=== PATIENT | male | born 1965 | race Caucasian/White ===

== ENCOUNTER 2019-08-20 16:05 | Observation (INO) | payer OTHER, SELFPAY ==
[2019-08-20 16:06] VITALS: BP 160/97; PULSE 107; RESP 16; TEMP 36.6; O2SAT 97; BMI 40.4
--- NOTE | 2019-08-20 16:21 | RAD_ITS ---
STUDY: X-RAY - RIGHT HAND REASON FOR EXAM: Male, 54 years old. SWELLING AND REDNESS TO 2ND DIGIT S/P PULLING OUT INGROWN NAIL, REDNESS TRAVELING PROXIMALLY TECHNIQUE: 3 view(s) of the hand. COMPARISON: None. FINDINGS: Normal radiocarpal articulation. Normal distal radioulnar joint. Normal visualized carpal bones. Normal carpal articulations Normal carpometacarpal articulation of the thumb. Normal second through fifth carpometacarpal joints. Normal metacarpi. Normal metacarpophalangeal joint of the thumb. Normal interphalangeal joint of the thumb. Normal proximal and distal phalanges of the thumb. There is degenerative arthrosis of the metacarpophalangeal (MCP) joints. Normal proximal and distal interphalangeal joints of the second through fifth fingers. Normal phalanges of the second through fifth fingers. There is localized soft tissue swelling of the distal second digit. RAD/Hand Min 3 Views IMPRESSION: Distal second digit soft tissue swelling without demonstrated fracture or erosive bony process. Electronically Signed: Jt Tyler MD (Brooks) at 17:11 EST , Service support ,
[2019-08-20 17:16] LABS: Absolute Lymphocyte Count 1.14 X10^3/uL (0.83-4.51); Absolute Neutrophil Count 5.4 X10^3/uL (2.0-7.7); Basophil# 0.06 X10^3/uL; Basophil% 0.8 % (0-1); Eosinophil# 0.15 X10^3/uL; Hematocrit 50.3 % (40-54); Hemoglobin 16.5 g/dL (13.0-16.5); Lymphocyte # 1.14 X10^3/ul (4.0); Lymphocyte % 15.3 % (19-41); Mean Corp Hgb Conc 32.8 g/dL (32-36); Mean Corpuscular Hgb 30.3 pg (27.0-32.0); Mean Corpuscular Volume 92.5 fL (80-94); Mean Platelet Vol. 9.2 fl (6.2-12.0); Monocyte# 0.66 X10^3/uL; Monocyte% 8.8 % (0-10); NRBC Flagged by Analyzer 0 % (0-5); Neutrophil # 5.39 X10^3/uL (2.7-7.7); Neutrophil % 72.3 % (47-70); Platelet Count 241 K/mm3 (150-450); RBC Distribution Width CV 12.4 % (11.6-14.6); RBC Distribution Width SD 42.2 fl (35.1-43.9); Red Blood Count 5.44 M/mm3 (4.6-6.2); White Blood Count 7.5 K/mm3 (4.4-11.0)
--- NOTE | 2019-08-20 17:42 | ED.DCSUM_ITS ---
- ER Visit Summary Date of Service: 08/20/19 Chief Complaint: Right arm infection History of Present Illness: The patient is a 54 M with a right arm infection. This started at his right index finger nailbed yesterday. He tried to drain it, but it did not resolve. He has streaking all up his right arm to his axilla. No fevers. History of diabetes with an A1c of 12. No blood thinners. Physical Examination: Afebrile and vital signs unremarkable. Heart rate 107. Alert and oriented. No acute distress. Patient has a right index finger paronychia with fluctuance. There is lymphangitic streaking up his right arm to his axilla. Otherwise exam is unremarkable. Test Results: Labs are pending. Cultures pending. X-ray shows second digit soft tissue swelling with no fracture or bony erosion. Emergency Department Course and Treatment: Paronychia was incised by me. Pus was expressed. He was soaked in soapy water. Patient will need IV antibiotics. He was started on clindamycin, again blood work and cultures are pending. Will contact the hospitalist for further care. Treatment Plan: As above Disposition: Admission Impression: 1. Right index finger paronychia 2. Lymphangitic streaking/cellulitis right arm This note was generated with myhomemove dictation software. It may contain incorrect words, spelling, and punctuation that were not noted in review of the chart prior to signing ED Disposition - Plan for ED Patient: Referrals: Guevara Gregg MD [Primary Care Provider] -
[2019-08-20 17:54] LABS: ALB/GLOB Ratio 1.3 RATIO (0.9-2.4); AST(SGOT) 14 U/L (15-37); Alanine Aminotransfer ALT/SGPT 51 U/L (16-61); Albumin, Serum 4.4 g/dL (3.2-5.0); Alkaline Phosphatase 62 U/L (45-117); Anion Gap 7 (5-15); BUN 17 mg/dL (7-18); BUN/Creat Ratio 20.6 RATIO (10-20); Calcium,Total 9.9 mg/dL (8.5-10.1); Chloride 108 mmol/L (98-107); Creatinine, Serum 0.82 mg/dL (0.70-1.30); EST Glomerular Filtration Rate 103 mL/min (>60); Est Glom Filt Rate - Afr Amer 125 mL/min (>60); Estimated Creatinine Clearance 109.68 ml/min; Globulin 3.5 g/dL (2.2-4.2); Glucose 128 mg/dL (74-106); Potassium 4.4 mmol/L (3.5-5.1); Protein, Total 7.9 g/dL (6.4-8.2); Sodium Level 138 mmol/L (136-145)
[2019-08-20 18:06] VITALS: BP 169/85; PULSE 96; RESP 16; TEMP 37; O2SAT 96
[2019-08-20 18:07] VITALS: TEMP 37
--- NOTE | 2019-08-20 18:57 | PCM.HP.STD ---
History of Present Illness Date of Admission: 08/20/19 Chief Complaint: Infected fingernail The patient is a 54 year old M with a history of diabetes presents with an infected first fingernail on the right hand. He says that he first noticed it a couple of days ago and he thought that it was can get better on its own however today he woke up he noticed redness streaking all the way up his arm into his axilla. He denies any fevers or chills. In the ER he has no white count or fever and vital signs are very stable. He is nervous about going home simply because of his diabetes and is afraid to the infection getting worse. Past Medical History Allergies No Known Allergies Allergy (Verified 08/20/19 16:06) Surgical History: no surgical history Smoking Status: Never smoker Alcohol: None Drugs: None - *Family History Maternal History Items: Cancer Paternal History Items: Unknown Review of Systems Constitutional: Denies: Chills, Fever, Weight Change HEENT: Denies: Head Aches, Sinus Congestion, Sinus Drainage Cardiovascular: Denies: Chest Pain, Palpitations Respiratory: Denies: Cough, Shortness of breath at rest, Sputum production Gastrointestinal: Denies: Abdominal Pain, Nausea, Vomiting Genitourinary: Denies: Dysuria Musculoskeletal: Denies: Joint Pain, Joint Tenderness Skin: Reports: Wounds - Infection in his first fingernail on his right hand. Denies: Rash Neurological: Denies: Numbness, Tingling, Focal weakness Psychiatric: Denies: Anxiety, Depression Hematologic/ Lymphatic: Denies: Easy Bruising, Easy Bleeding VTE Information - Inpt Only VTE Present on Admission: No - Physical Exam Vitals/I&O's: Vital Signs Temp Pulse Resp BP Pulse Ox 98.6 F 96 16 169/85 H 96 08/20/19 18:07 08/20/19 18:06 08/20/19 18:06 08/20/19 18:06 08/20/19 18:06 Oxygen Delivery Method Room Air Weight: 290 lb Body Mass Index (BMI) 40.4 Intake and Output for Last 24 Hours 08/18/19 08/19/19 08/20/19 23:59 23:59 23:59 Intake Total 54 / 54 Balance 54 / 54 General: Alert, Oriented x3, Cooperative, No apparent distress HEENT: Atraumatic, PERRLA, EOMI, Normocephalic Oral: Moist Mucosa Neck: Supple, No JVD Lungs: Clear to auscultation, Normal air movement, No rhonchi, No wheeze, No rales, Diminished Cardiovascular: Regular rate, Regular Rhythm, Normal S1, Normal S2, No murmurs Abdomen: Soft, Non Tender, Non-Distended, No Hepato-splenomegaly Extremities: No edema, Capillary Refill Less than 3 Seconds Skin: Ulcer/ Wound - Right paronychia on the first finger nail, status post I&D in the ER there is lymphangitic streaking up into his axilla Neurological: Neuro grossly intact, Sensory exam intact to light touch and pain - 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 from diabetes Psych/Mental Status: Normal Affect, Appropriate Laboratory Results 08/20/19 17:06: WBC 7.5, RBC 5.44, Hgb 16.5, Hct 50.3, MCV 92.5, MCH 30.3, MCHC 32.8, RDW Std Deviation 42.2, RDW Coeff of Johnathan 12.4, Plt Count 241, MPV 9.2, Immature Gran % (Auto) 0.800, Neut % (Auto) 72.3 H, Lymph % (Auto) 15.3 L, [place] % (Auto) 8.8, Eos % (Auto) 2.0, Baso % (Auto) 0.8, Absolute Neuts (auto) 5.4, Absolute Lymphs (auto) 1.14, Nucleated RBC % 0 08/20/19 17:20: Sodium 138, Potassium 4.4, Chloride 108 H, Carbon Dioxide 23.0, Anion Gap 7, BUN 17, Creatinine 0.82, Estim Creat Clear Calc 109.68, Est GFR (MDRD) Af Amer 125, Est GFR (MDRD) Non-Af 103, BUN/Creatinine Ratio 20.6 H, Glucose 128 H, Calcium 9.9, Total Bilirubin 0.30, AST 14 L, ALT 51, Alkaline Phosphatase 62, Total Protein 7.9, Albumin 4.4, Globulin 3.5, Albumin/Globulin Ratio 1.3 Assessment/Plan 1. Paronychia status post I&D without sepsis -We will start him on p.o. Keflex and monitor for response he did receive a dose of clindamycin in the ER -Local wound care -There is a lymphangitic streak up into the axilla there is no tenderness 2. DM 2/morbid obesity -We will hold his home oral medications -Obtain an A1c for our records -Continue with long-acting insulin 5 units at night with sliding scale insulin. Accu-Cheks AC at bedtime -BMI of 40.4, he has lost well over 100 pounds from a couple years ago. Discussed lifestyle modifications as well as diet and exercise. DVT: Low risk Code Visit OBSV E&M: 52561 Initial observation care L2
[2019-08-20 19:33] VITALS: BMI 41.3
[2019-08-20 19:41] VITALS: BP 139/81; PULSE 91; RESP 16; TEMP 36.1; O2SAT 97
[2019-08-20 19:42] VITALS: BMI 41.3
[2019-08-20] MEDS: Losartan Potassium 50 MG Tablet PO (21:42)
[2019-08-20 22:00] LABS: Bedside Glucose 130 mg/dL (70-110)
[2019-08-20] MEDS: Cephalexin 500 MG Capsule PO (23:47)
[2019-08-20 23:51] VITALS: BP 143/79; PULSE 94; RESP 18; TEMP 36.9; O2SAT 98
[2019-08-21 05:45] VITALS: BP 133/68; PULSE 88; RESP 18; TEMP 36.9; O2SAT 93
[2019-08-21] MEDS: Cephalexin 500 MG Capsule PO (05:47)
[2019-08-21 06:04] LABS: Absolute Lymphocyte Count 1.06 X10^3/uL (0.83-4.51); Absolute Neutrophil Count 4.5 X10^3/uL (2.0-7.7); Basophil# 0.05 X10^3/uL; Basophil% 0.8 % (0-1); Eosinophil# 0.24 X10^3/uL; Eosinophils% 3.6 % (0-5); Hematocrit 47.8 % (40-54); Hemoglobin 15.7 g/dL (13.0-16.5); Lymphocyte # 1.06 X10^3/ul (4.0); Mean Corp Hgb Conc 32.8 g/dL (32-36); Mean Corpuscular Hgb 30.1 pg (27.0-32.0); Mean Corpuscular Volume 91.7 fL (80-94); Mean Platelet Vol. 9.1 fl (6.2-12.0); Monocyte# 0.72 X10^3/uL; Monocyte% 10.9 % (0-10); NRBC Flagged by Analyzer 0 % (0-5); Neutrophil # 4.51 X10^3/uL (2.7-7.7); Neutrophil % 68.1 % (47-70); Platelet Count 243 K/mm3 (150-450); RBC Distribution Width CV 12.5 % (11.6-14.6); RBC Distribution Width SD 42.3 fl (35.1-43.9); Red Blood Count 5.21 M/mm3 (4.6-6.2); White Blood Count 6.6 K/mm3 (4.4-11.0)
[2019-08-21 06:25] LABS: Anion Gap 7 (5-15); BUN 14 mg/dL (7-18); BUN/Creat Ratio 16.1 RATIO (10-20); Calcium,Total 9.5 mg/dL (8.5-10.1); Chloride 108 mmol/L (98-107); Creatinine, Serum 0.87 mg/dL (0.70-1.30); EST Glomerular Filtration Rate 97 mL/min (>60); Est Glom Filt Rate - Afr Amer 118 mL/min (>60); Estimated Creatinine Clearance 103.38 ml/min; Glucose 130 mg/dL (74-106); Potassium 4.2 mmol/L (3.5-5.1); Sodium Level 140 mmol/L (136-145)
[2019-08-21 06:56] LABS: Bedside Glucose 180 mg/dL (70-110)
[2019-08-21 08:40] VITALS: BP 140/89; PULSE 95; RESP 18; TEMP 36.5; O2SAT 94
[2019-08-21] MEDS: Insulin Lispro 100 UNIT/ML INSULN.PEN SC ×3 (11:28→21:45)
[2019-08-21 11:36] LABS: Bedside Glucose 220 mg/dL (70-110)
[2019-08-21] MEDS: Cefazolin 2 GM in 0.9% Normal Saline 100 ML IV ×2 (13:32→21:36)
[2019-08-21] MEDS: 0.9% Saline Lock 10 ML Syringe IV (13:32)
[2019-08-21 15:00] VITALS: BP 145/84; PULSE 94; RESP 18; TEMP 36.9; O2SAT 96
--- NOTE | 2019-08-21 15:49 | PN_ITS ---
Subjective: Patient still has swelling of the finger of right index finger. There is no fluctuation. Vitals/I&O's: Vital Signs Temp Pulse Resp BP Pulse Ox 98.4 F 94 18 145/84 H 96 08/21/19 15:00 08/21/19 15:00 08/21/19 15:00 08/21/19 15:00 08/21/19 15:00 Oxygen Delivery Method Room Air Weight: 296 lb 3.2 oz Body Mass Index (BMI) 41.3 Intake and Output for Last 24 Hours 08/19/19 08/20/19 08/21/19 23:59 23:59 23:59 Intake Total 554 / 554 810 / 810 Balance 554 / 554 810 / 810 General: Alert, Oriented x3, Cooperative HEENT: Atraumatic, PERRLA, EOMI, Normocephalic Neck: Supple, No JVD, Negative Carotid Bruits Lungs: Clear to auscultation, Normal air movement, No rhonchi, No wheeze, No rales Cardiovascular: Regular rate, Regular Rhythm, Normal S1, Normal S2, No murmurs Abdomen: Bowel Sounds Present, Soft, Non Tender Extremities: No edema, Capillary Refill Less than 3 Seconds Skin: Rash Present - Erythema present over right forearm and medial aspect of arm up to axilla which is improving. No tenderness or induration. Small paronychia of right index finger but no tenderness or fluctuation sign elicited. Musculoskeletal: No Tenderness to Palpation of Joints or Extremities Neurological: Cranial nerves II-XII grossly intact, Deep Tendon Reflexes 2+/4 and Symmetrical, Neuro grossly intact Psych/Mental Status: Normal Affect, Appropriate Laboratory Results 08/20/19 17:06: WBC 7.5, RBC 5.44, Hgb 16.5, Hct 50.3, MCV 92.5, MCH 30.3, MCHC 32.8, RDW Std Deviation 42.2, RDW Coeff of Johnathan 12.4, Plt Count 241, MPV 9.2, Immature Gran % (Auto) 0.800, Neut % (Auto) 72.3 H, Lymph % (Auto) 15.3 L, [place] % (Auto) 8.8, Eos % (Auto) 2.0, Baso % (Auto) 0.8, Absolute Neuts (auto) 5.4, Absolute Lymphs (auto) 1.14, Nucleated RBC % 0 08/20/19 17:20: Sodium 138, Potassium 4.4, Chloride 108 H, Carbon Dioxide 23.0, Anion Gap 7, BUN 17, Creatinine 0.82, Estim Creat Clear Calc 109.68, Est GFR (MDRD) Af Amer 125, Est GFR (MDRD) Non-Af 103, BUN/Creatinine Ratio 20.6 H, Glucose 128 H, Calcium 9.9, Total Bilirubin 0.30, AST 14 L, ALT 51, Alkaline Phosphatase 62, Total Protein 7.9, Albumin 4.4, Globulin 3.5, Albumin/Globulin Ratio 1.3 08/20/19 21:41: POC Glucose 130 H 08/21/19 05:30: WBC 6.6, RBC 5.21, Hgb 15.7, Hct 47.8, MCV 91.7, MCH 30.1, MCHC 32.8, RDW Std Deviation 42.3, RDW Coeff of Johnathan 12.5, Plt Count 243, MPV 9.1, Immature Gran % (Auto) 0.600, Neut % (Auto) 68.1, Lymph % (Auto) 16.0 L, [place] % (Auto) 10.9 H, Eos % (Auto) 3.6, Baso % (Auto) 0.8, Absolute Neuts (auto) 4.5, Absolute Lymphs (auto) 1.06, Nucleated RBC % 0 08/21/19 05:30: Sodium 140, Potassium 4.2, Chloride 108 H, Carbon Dioxide 25.0, Anion Gap 7, BUN 14, Creatinine 0.87, Estim Creat Clear Calc 103.38, Est GFR (MDRD) Af Amer 118, Est GFR (MDRD) Non-Af 97, BUN/Creatinine Ratio 16.1, Glucose 130 H, Calcium 9.5 08/21/19 06:49: POC Glucose 180 H 08/21/19 11:23: POC Glucose 220 H Current Medications Acetaminophen (Tylenol) 650 mg PO Q6H PRN PRN PRN Reason: Pain Score 1-10/Temp > 100.7 F Glucagon () 1 mg IM .X1 PRN PRN Reason: Hypoglycemia Glyburide (Micronase) 5 mg PO QHS [facility] Last Admin: 08/20/19 21:42 Dose: 5 mg Documented by: Dextrose (Dextrose 10%-Water) 250 mls @ 999 mls/hr IV .Q16M PRN; Protocol PRN Reason: HYPOGLYCEMIA Cefazolin Sodium 2 gm/ Sodium (Chloride) 110 mls @ 150 mls/hr IV Q8 [place] Last Infusion: 08/21/19 14:16 Dose: Infused Documented by: Sodium Chloride () 250 mls @ 15 mls/hr IV .[id number] PRN PRN Reason: Saline Flush Insulin Glargine (Lantus (Bk)) 5 units SC QHS [facility] Last Admin: 08/20/19 21:44 Dose: 5 u Documented by: Insulin Human Lispro (Humalog Kwikpen ([facility])) 0 unit SC ACHS [facility]; Protocol Last Admin: 08/21/19 11:28 Dose: 4 units Documented by: Losartan Potassium (Cozaar) 50 mg PO QHS [place] Last Admin: 08/20/19 21:42 Dose: 50 mg Documented by: Ondansetron HCl (Zofran) 4 mg IV Q8H PRN PRN PRN Reason: NAUSEA/VOMITING Sodium Chloride () 10 - 40 ml IV UD PRN PRN Reason: SALINE FLUSH Last Admin: 08/21/19 13:32 Dose: 10 ml Documented by: STROKE Vital Signs/Narrative: Vital Signs Temp Pulse Resp BP Pulse Ox 08/21/19 15:00 98.4 F 94 18 145/84 H 96 Medical Necessity - Tobacco Use Smoking Status: Never smoker Tobacco Use: Chew Assessment/Plan This is a 54 gentleman with history of diabetes was admitted with right index finger paronychia with cellulitis of right upper extremity up to axilla. 1. Right index finger paronychia with cellulitis and right upper extremity up to axilla: Patient had I and D done in ER. Patient on IV cefazolin 2 g every 8 hourly. Cellulitis is improving. 2. Diabetes mellitus type 2: Patient blood sugar is reasonably well controlled. Glucose in BMP 130. A1c ordered for tomorrow a.m. 3. Morbid obesity: BMI is 40.4. DVT: Moderate risk started on Lovenox 40 mils subcu daily. Laboratory Results 08/20/19 17:06: WBC 7.5, RBC 5.44, Hgb 16.5, Hct 50.3, MCV 92.5, MCH 30.3, MCHC 32.8, RDW Std Deviation 42.2, RDW Coeff of Johnathan 12.4, Plt Count 241, MPV 9.2, Immature Gran % (Auto) 0.800, Neut % (Auto) 72.3 H, Lymph % (Auto) 15.3 L, [place] % (Auto) 8.8, Eos % (Auto) 2.0, Baso % (Auto) 0.8, Absolute Neuts (auto) 5.4, Absolute Lymphs (auto) 1.14, Nucleated RBC % 0 08/20/19 17:20: Sodium 138, Potassium 4.4, Chloride 108 H, Carbon Dioxide 23.0, Anion Gap 7, BUN 17, Creatinine 0.82, Estim Creat Clear Calc 109.68, Est GFR (MDRD) Af Amer 125, Est GFR (MDRD) Non-Af 103, BUN/Creatinine Ratio 20.6 H, Glucose 128 H, Calcium 9.9, Total Bilirubin 0.30, AST 14 L, ALT 51, Alkaline Phosphatase 62, Total Protein 7.9, Albumin 4.4, Globulin 3.5, Albumin/Globulin Ratio 1.3 08/20/19 21:41: POC Glucose 130 H 08/21/19 05:30: WBC 6.6, RBC 5.21, Hgb 15.7, Hct 47.8, MCV 91.7, MCH 30.1, MCHC 32.8, RDW Std Deviation 42.3, RDW Coeff of Johnathan 12.5, Plt Count 243, MPV 9.1, Immature Gran % (Auto) 0.600, Neut % (Auto) 68.1, Lymph % (Auto) 16.0 L, Randall % (Auto) 10.9 H, Eos % (Auto) 3.6, Baso % (Auto) 0.8, Absolute Neuts (auto) 4.5, Absolute Lymphs (auto) 1.06, Nucleated RBC % 0 08/21/19 05:30: Sodium 140, Potassium 4.2, Chloride 108 H, Carbon Dioxide 25.0, Anion Gap 7, BUN 14, Creatinine 0.87, Estim Creat Clear Calc 103.38, Est GFR (MDRD) Af Amer 118, Est GFR (MDRD) Non-Af 97, BUN/Creatinine Ratio 16.1, Glucose 130 H, Calcium 9.5 08/21/19 06:49: POC Glucose 180 H 08/21/19 11:23: POC Glucose 220 H Code Visit Inpatient E&M: 12736 Subs Hosp L2
[2019-08-21 16:41] LABS: Bedside Glucose 184 mg/dL (70-110)
[2019-08-21 21:33] VITALS: BP 146/85; PULSE 95; RESP 18; TEMP 36.3; O2SAT 96
[2019-08-21] MEDS: Losartan Potassium 50 MG Tablet PO (21:38)
[2019-08-21 22:01] LABS: Bedside Glucose 178 mg/dL (70-110)
[2019-08-22 03:46] VITALS: BP 132/77; PULSE 91; RESP 16; TEMP 36.6; O2SAT 93
[2019-08-22] MEDS: Cefazolin 2 GM in 0.9% Normal Saline 100 ML IV ×2 (06:09→11:22)
[2019-08-22 06:55] LABS: Bedside Glucose 151 mg/dL (70-110)
[2019-08-22 07:46] LABS: Hemoglobin A1c 10.8 % (4.2-6.3)
[2019-08-22 07:48] VITALS: BP 140/89; PULSE 99; RESP 16; TEMP 36.2; O2SAT 99
[2019-08-22 07:52] VITALS: PULSE 100
--- NOTE | 2019-08-22 10:07 | DCINST_ITS ---
You will use the following diet at home:: Calorie/Carbohydrate Controlled (specify 1200, 1400, etc) - 1600 ADA diet Your food should be the consistency of: Regular Discharge Activity: May Not Drive - for 1 week Weight Bearing Status: Weight bearing as tolerated Call your doctor if you observe: Fever of 101 or Higher, Coldness, Increased Pain, Numbness or Tingling, Change in Color, Inability to have a bowel movement, Using more than one pad per hour, Shortness of breath, Fainting spells, Prolonged hiccoughing, Increased palpitations (irregular heartbeat), Calf discomfort, Uncontrolled pain Allergies/Adverse Reactions: Allergies No Known Allergies Allergy (Verified 08/20/19 16:06) Medications to take at Discharge Glyburide 5 mg PO QHS 08/20/19 Losartan Potassium [Cozaar] 50 mg PO QHS 08/20/19 Metformin HCl [Metformin HCl ER] 750 mg PO QHS 08/20/19 Cefadroxil 1 gm PO BID #14 tab 08/22/19 Dulaglutide [Trulicity] 1 mg SQ TH #0 08/22/19 The following prescriptions were given: Cefadroxil 1 gm PO BID #14 tab Transmission Status: Pending to [id number] Primary Care Physician: Guevara Gregg MD [Primary Care Provider] - Please follow up with your Primary Care Physician in: in 1 week Test Results: Test results from this visit will be discussed in further detail at your follow- up appointment, if applicable.
--- NOTE | 2019-08-22 10:08 | PCM.DC.SUM ---
Discharge Date and Diagnosis Date of Admission: 08/20/19 Date of Discharge: 08/22/19 Hospital Course and Treatment Summary of Care Provided: [] This is a 54 gentleman with history of diabetes was admitted with right index finger paronychia with cellulitis of right upper extremity up to axilla. 1. Right index finger paronychia with cellulitis and right upper extremity up to axilla: Patient had I and D done in ER. Patient on IV cefazolin 2 g every 8 hourly. The cellulitis has improved. There is no expressible pus at the right index finger paronychia site after incision and drainage in ER. Patient is discharged on 7 days of cefadroxil 1 g twice daily, total 14 doses. Prescription sent to patient's pharmacy. 2. Diabetes mellitus type 2: Patient blood sugar is reasonably well controlled. Glucose in BMP 130. A1c 10.8. Trulicity dose increased to 1 mg subcu on . Continue metformin and glimepiride. Blood pressure is controlled. Continue losartan 50 mg. 3. Morbid obesity: BMI is 40.4. Weight loss counseling done. DVT: Moderate risk started on Lovenox 40 mg subcu daily. Laboratory Results 08/21/19 11:23: POC Glucose 220 H 08/21/19 16:21: POC Glucose 184 H 08/21/19 21:42: POC Glucose 178 H 08/22/19 06:05: Hemoglobin A1c 10.8 H 08/22/19 06:52: POC Glucose 151 H Subjective: Seen and examined. Patient did not had any fever or chills. Blood pressure is controlled. Redness of right upper extremity has improved. - Physical Exam Vitals/I&O's: Vital Signs Temp Pulse Resp BP Pulse Ox 97.2 F L 100 16 140/89 H 99 08/22/19 07:48 08/22/19 07:52 08/22/19 07:48 08/22/19 07:48 08/22/19 07:48 Oxygen Delivery Method Room Air Weight: 296 lb 3.2 oz Body Mass Index (BMI) 41.3 Intake and Output for Last 24 Hours 08/20/19 08/21/19 08/22/19 23:59 23:59 23:59 Intake Total 554 / 554 1420 / 2420 1350 / 1350 Balance 554 / 554 1420 / 2420 1350 / 1350 General: Alert, Oriented x3, Cooperative HEENT: Atraumatic, PERRLA, EOMI, Normocephalic Oral: No Gingival or Mucosal Lesions/ Ulcerations Neck: Supple, No JVD, Negative Carotid Bruits Lungs: Clear to auscultation, Normal air movement Cardiovascular: Regular rate, No murmurs Abdomen: Bowel Sounds Present, Soft, Non Tender Extremities: No edema, Capillary Refill Less than 3 Seconds Skin: Ulcer/ Wound - Small right index finger. No expressible pus., Rash Present - Right upper extremity has almost resolved. Musculoskeletal: No Tenderness to Palpation of Joints or Extremities Neurological: Cranial nerves II-XII grossly intact Psych/Mental Status: Normal Affect, Appropriate Laboratory Results 08/21/19 11:23: POC Glucose 220 H 08/21/19 16:21: POC Glucose 184 H 08/21/19 21:42: POC Glucose 178 H 08/22/19 06:05: Hemoglobin A1c 10.8 H 08/22/19 06:52: POC Glucose 151 H Current Medications Acetaminophen (Tylenol) 650 mg PO Q6H PRN PRN PRN Reason: Pain Score 1-10/Temp > 100.7 F Enoxaparin Sodium (Lovenox) 40 mg SC DAILY [facility] Last Admin: 08/21/19 16:35 Dose: Not Given Documented by: Glucagon () 1 mg IM .X1 PRN PRN Reason: Hypoglycemia Glyburide (Micronase) 5 mg PO QHS [facility] Last Admin: 08/21/19 21:38 Dose: 5 mg Documented by: Dextrose (Dextrose 10%-Water) 250 mls @ 999 mls/hr IV .Q16M PRN; Protocol PRN Reason: HYPOGLYCEMIA Cefazolin Sodium 2 gm/ Sodium (Chloride) 110 mls @ 150 mls/hr IV Q8 [facility] Last Infusion: 08/22/19 07:00 Dose: Infused Documented by: Sodium Chloride () 250 mls @ 15 mls/hr IV .[id number] PRN PRN Reason: Saline Flush Insulin Glargine (Lantus ([facility])) 8 units SC QHS [facility] Last Admin: 08/21/19 21:45 Dose: Not Given Documented by: Insulin Human Lispro (Humalog Kwikpen ([facility])) 0 unit SC ACHS [facility]; Protocol Last Admin: 08/22/19 06:54 Dose: Not Given Documented by: Losartan Potassium (Cozaar) 50 mg PO QHS [facility] Last Admin: 08/21/19 21:38 Dose: 50 mg Documented by: Ondansetron HCl (Zofran) 4 mg IV Q8H PRN PRN PRN Reason: NAUSEA/VOMITING Sodium Chloride () 10 - 40 ml IV UD PRN PRN Reason: SALINE FLUSH Last Admin: 08/21/19 13:32 Dose: 10 ml Documented by: Discharge Activity: May Not Drive - for 1 week Weight Bearing Status: Weight bearing as tolerated Call your doctor if you observe: Fever of 101 or Higher, Coldness, Increased Pain, Numbness or Tingling, Change in Color, Inability to have a bowel movement, Using more than one pad per hour, Shortness of breath, Fainting spells, Prolonged hiccoughing, Increased palpitations (irregular heartbeat), Calf discomfort, Uncontrolled pain Home Medications: Medications to take at Discharge Glyburide 5 mg PO QHS 08/20/19 Losartan Potassium [Cozaar] 50 mg PO QHS 08/20/19 Metformin HCl [Metformin HCl ER] 750 mg PO QHS 08/20/19 Cefadroxil 1 gm PO BID #14 tab 08/22/19 Dulaglutide [Trulicity] 1 mg SQ TH #0 08/22/19 Following Prescrptions Were Given to Patient: Cefadroxil 1 gm PO BID #14 tab Transmission Status: Pending to [id number] Primary Care Physician: Guevara Gregg MD [Primary Care Provider] - Please follow up with your Primary Care Physician in: in 1 week Medical Necessity - Tobacco Use Smoking Status: Never smoker Tobacco Use: Chew Meaningful Use Info Meaningful Use Diagnoses (Choose all that apply): None applicable Code Visit Inpatient E&M: 86864 Disch Hosp
[2019-08-22] MEDS: Insulin Lispro 100 UNIT/ML INSULN.PEN SC (11:18)
[2019-08-22 11:55] LABS: Bedside Glucose 237 mg/dL (70-110)
[2019-08-22 12:32] VITALS: BP 148/74; PULSE 99; RESP 16; TEMP 35.7; O2SAT 96
--- NOTE | 2019-08-22 12:40 | NURSING ---
This nurse spoke with Dr Walker, and he said pt could drive if he feels comfortable driving, and pt is to remain on trulicity 0.75 mg. Pt notified.
== END 2019-08-22 12:48 | disposition home or self-care (01) ==
LOC: ED 17:24 → MS3 18:27
PROVIDERS: Admitting Provider Family Medicine; Emergency Provider Emergency Medicine; Visit Provider Internal Medicine
DX: L03.011 Cellulitis of right finger (principal); E11.9 Type 2 diabetes mellitus without complications; E66.01 Morbid (severe) obesity due to excess calories; Z68.41 Body mass index [BMI] 40.0-44.9, adult; Z71.3 Dietary counseling and surveillance; Z23 Encounter for immunization; F17.220 Nicotine dependence, chewing tobacco, uncomplicated
CPT/HCPCS: 10060; 36415; 73130; 80048; 80053; 82962; 83036; 85025; 87040; 96365; 96366; 96367; 99218; 99283; 99406; 90686; A4216; G0378

== ENCOUNTER 2023-03-27 10:10 | Emergency (ER) | payer OTHER, SELFPAY ==
[2023-03-27 10:11] VITALS: BP 143/99; PULSE 94; RESP 16; TEMP 36.2; O2SAT 97; BMI 36.3
--- NOTE | 2023-03-27 10:34 | EX.ED.DYSGE1 ---
HPI History of Present Illness Chief Complaint: Cellulitis Detail of Chief Complaint: Cellulitis right foot Informant: patient and spouse/S.O. Narrative Narrative: Patient presents with redness and swelling to the right foot and fourth toe that he noticed yesterday. Patient states that he started not feeling well yesterday. When he looked at his foot he noted that there had been a blister to the lateral aspect of the fourth toe and redness and swelling to the foot. He is a type II diabetic. Denies fever or diaphoresis or nausea or vomiting. Denies any injury to his foot otherwise. Patient thinks his fifth toe kind of rubbed against the fourth toe causing the blister. [facility] Medical History (Updated 03/27/23 @ 11:[address] María Lam, ) Diabetes Home Medications glyburide 5 mg tablet 5 mg PO QHS diabetes 08/20/19 [History Last Taken 08/19/19] losartan 50 mg tablet 50 mg PO QHS blood pressure 08/20/19 [History Last Taken 08/19/19] metformin 750 mg tablet,extended release 24 hr 750 mg PO QHS diabetes 08/20/19 [History Last Taken 08/19/19] cefadroxil 1 gram tablet 1 gm PO BID #14 tabs 08/22/19 [Rx Last Taken Unknown] dulaglutide 1.5 mg/0.5 mL subcutaneous pen injector 1 mg (0.3333 mL) SQ TH diabetes ##0 08/22/19 [Rx Last Taken 08/17/19] cephalexin 500 mg capsule 500 mg PO Q6 #40 CAPSULES 03/27/23 [Rx Last Taken Unknown] sulfamethoxazole 800 mg-trimethoprim 160 mg tablet 1 tab PO BID #20 TABLETS 03/27/23 [Rx Last Taken Unknown] Allergy/AdvReac Type Severity Reaction Status Date / Time No Known Allergies Allergy Verified 03/27/23 10:12 Social History Smoking Status: Never smoker ROS ROS ED Review of Systems ROS Unobtainable: other Constitutional Constitutional ED: Reports lethargy; Denies chills, fever(s), sweats or weight loss Eyes Eyes: Denies blurry vision, change in vision or diplopia ENT ENT ED: Denies rhinorrhea or sore throat Cardiovascular Cardiovascular: Denies chest pain, orthopnea or racing heartbeat Respiratory/Chest Respiratory/Chest: Denies cough, dyspnea, dyspnea on exertion, orthopnea or sputum Gastrointestinal Gastrointestinal: Denies abdominal pain, diarrhea, nausea or vomiting Genitourinary Genitourinary ED: Denies dysuria, hematuria or urinary frequency Musculoskeletal Musculoskeletal: Denies arthralgias, back pain, myalgias or neck pain Integumentary Reports rash and other Details: Redness and swelling to left fourth toe and foot ; Denies abscess or Abrasions Neurologic Neurologic: Denies headache(s) or weakness Psychiatric Psychiatric: Denies anxiety, depression or suicidal thoughts Endocrine Endocrinology: Denies polydipsia, polyphagia or polyuria Hematologic/Lymphatic Hematologic/Lymphatic: Denies easy bleeding, easy bruising or lymphadenopathy Allergic/Immunologic Allergic/Immunologic ED: Denies mouth swelling, tongue swelling or urticaria EXAM Physical Exam Const Vital Signs: 03/27/23 10:11 03/27/23 11:05 03/27/23 11:05 Temperature 97.2 F L 96.9 F L 96.9 F L Temperature Source Temporal Temporal Temporal Pulse Rate 94 89 89 Respiratory Rate 16 16 16 Blood Pressure 143/99 H 135/84 H 135/84 H Blood Pressure Mean 113 101 101 Pulse Ox 97 95 95 Oxygen Delivery Method Room Air Room Air Room Air Positive well nourished and well developed General Appearance ED: well developed and NAD HEENT Reports TM's clear and moist mucous membranes normocephalic and atraumatic; Negative for trauma or tenderness Tympanic Membrane ED: Yes TM's clear Eyes PERRL and EOMs intact bilaterally General Eye ED: Negative for pale conjunctiva or scleral icterus Neck no lymphadenopathy, supple and no JVD General: Negative for tenderness Chest Wall inspection of chest normal and palpation of chest normal Chest: Negative for tenderness Resp normal respiratory effort and clear to auscultation bilaterally Effort and Inspection: Negative for respiratory distress or pain with movement Auscultation: Negative for rhonchi, wheezes or diminished lung sounds Cardio regular rate, regular rhythm, S1 normal heart sound, S2 normal heart sound and no murmurs Peripheral Pulses: pulses 2+ throughout GI normal to inspection, nondistended, normoactive bowel sounds, soft to palpation, non-tender, non-distended and no masses Back/Spine no CVA tenderness and no thoracic nor lumbar tenderness Extremity Extremity Narrative: Right foot-patient does have an area of deroofed blister to the lateral aspect of fourth toe. There is soft tissue swelling and erythema diffusely about the toe as well as extending onto the dorsum of the foot. No bony deformity noted. No ingrown nails noted. Neurovascularly intact distally. General Extremety ED: Negative for edema General Extremity: Negative for edema Neuro oriented x3, CN's II-XII intact bilaterally, no sensory deficits noted and gait normal Sensorium / Orientation: awake, alert, oriented to person, oriented to place and oriented to time Motor Exam: strength 5/5 throughout and strength abnormal Psych mental status grossly normal Skin no rashes or lesions noted and no wounds MDM MDM MDM Narrative Medical decision making narrative: Patient presents with cellulitic changes of the right fourth toe and foot. IV line will be established and he will be given Unasyn 3 g IV. Basic lab work-up will be obtained. I will outline the area of erythema with permanent marker. Patient was also given a dose of Bactrim p.o. Lab work-up showed a normal white count of 8.2 with hemoglobin of 14 and platelet count 202. Chemistries unremarkable. Lactate was normal. Glucose was 337. Clinically patient looks well. He is not septic. I feel he can be treated as an outpatient initially. Will start on Keflex and Bactrim. Advised to return if increasing pain, redness, swelling, purulent drainage, fever, or condition should worsen anyway Lab Data Labs: Laboratory Results - last 24 hr 03/27/23 10:45 WBC 8.2 RBC 4.60 Hgb 14.5 Hct 43.3 MCV 94.1 H MCH 31.5 MCHC 33.5 RDW Std Deviation 44.7 H RDW Coeff of Johnathan 13.0 Plt Count 202 MPV 10.9 Immature Gran % (Auto) 0.500 Neut % (Auto) 76.4 H Lymph % (Auto) 12.6 L [place] % (Auto) 8.9 Eos % (Auto) 1.0 Baso % (Auto) 0.6 Absolute Neuts (auto) 6.2 Absolute Lymphs (auto) 1.03 Nucleated RBC % 0 Sodium 133 L Potassium 4.8 Chloride 100 Carbon Dioxide 28.0 Anion Gap 5 BUN 15 Creatinine 0.99 Estim Creat Clear Calc 86.62 Est GFR (MDRD) Af Amer 99 Est GFR (MDRD) Non-Af 82 BUN/Creatinine Ratio 15.1 Glucose 337 H Lactic Acid 1.0 Calcium 9.2 Discharge Plan Triage Chief Complaint: Cellulitis ED Provider: María Lam Dx/Rx/DC Orders Clinical Impression: Cellulitis of foot, right Instructions: ED Cellulitis Prescriptions: New sulfamethoxazole-trimethoprim [sulfamethoxazole-trimethoprim] 800-160 mg tablet 1 tab PO BID Qty: 20 0RF cephalexin [cephalexin] 500 mg capsule 500 mg PO Q6 Qty: 40 0RF No Action losartan 50 MG tablet 50 mg PO QHS glyburide 5 tablet 5 mg PO QHS metformin 750 MG tablet extended release 24 hr 750 mg PO QHS dulaglutide 1.5 pen injector 1 mg SQ TH Qty: 0 0RF cefadroxil 1 GM tablet 1 gm PO BID Qty: 14 0RF Primary Care Provider: Doug Alvarado Referrals: Doug Alvarado MD [Primary Care Provider] - 3-5 Days Disposition Disposition: Home, Self Care Discharge Date/Time: 03/27/23 12:05
[2023-03-27 11:05] VITALS: BP 135/84; PULSE 89; RESP 16; TEMP 36.1; O2SAT 95
[2023-03-27 11:10] LABS: Absolute Lymphocyte Count 1.03 X10^3/uL (0.83-4.51); Absolute Neutrophil Count 6.2 X10^3/uL (2.0-7.7); Basophil# 0.05 X10^3/uL; Basophil% 0.6 % (0-1); Eosinophil# 0.08 X10^3/uL; Hematocrit 43.3 % (40-54); Hemoglobin 14.5 g/dL (13.0-16.5); Lymphocyte # 1.03 X10^3/ul (0.83-4.51); Lymphocyte % 12.6 % (19-41); Mean Corp Hgb Conc 33.5 g/dL (32-36); Mean Corpuscular Hgb 31.5 pg (27.0-32.0); Mean Corpuscular Volume 94.1 fL (80-94); Mean Platelet Vol. 10.9 fl (6.2-12.0); Monocyte# 0.73 X10^3/uL; Monocyte% 8.9 % (0-10); NRBC Flagged by Analyzer 0 % (0-5); Neutrophil # 6.24 X10^3/uL (2.7-7.7); Neutrophil % 76.4 % (47-70); Platelet Count 202 K/mm3 (150-450); RBC Distribution Width SD 44.7 fl (35.1-43.9); White Blood Count 8.2 K/mm3 (4.4-11.0)
[2023-03-27 11:13] LABS: Anion Gap 5 (5-15); BUN 15 mg/dL (7-18); BUN/Creat Ratio 15.1 RATIO (10-20); Calcium,Total 9.2 mg/dL (8.5-10.1); Chloride 100 mmol/L (98-107); Creatinine, Serum 0.99 mg/dL (0.70-1.30); EST Glomerular Filtration Rate 82 mL/min (>60); Est Glom Filt Rate - Afr Amer 99 mL/min (>60); Estimated Creatinine Clearance 86.62 ml/min; Glucose 337 mg/dL (74-106); Potassium 4.8 mmol/L (3.5-5.1); Sodium Level 133 mmol/L (136-145)
[2023-03-27] MEDS: Smz/Tmp Ds Tablet 1 TABLET PO (11:50)
== END 2023-03-27 12:05 | disposition home or self-care (01) ==
LOC: ED 12:00
PROVIDERS: Emergency Provider Emergency Medicine; PCP Family Medicine; Visit Provider Emergency Medicine
DX: L03.115 Cellulitis of right lower limb (principal); E11.9 Type 2 diabetes mellitus without complications; S90.424A Blister (nonthermal), right lesser toe(s), initial encounter; X58.XXXA Exposure to other specified factors, initial encounter; Z79.84 Long term (current) use of oral hypoglycemic drugs; Z79.899 Other long term (current) drug therapy
CPT/HCPCS: 80048; 83605; 85025; 96365; 99283; J7050; J0295